=== PATIENT | female | born 1965 | race Caucasian/White ===

== ENCOUNTER 2020-02-04 04:07 | Emergency (ER) | payer MEDICARE, MEDICAID ==
[2020-02-04] MEDS ORDERED: Amiodarone 150 MG/3 ML VIAL ONE (04:10)
[2020-02-04] MEDS ORDERED: Magnesium 5 GM/10 ML VIAL ONE (04:21)
[2020-02-04] MEDS ORDERED: Lorazepam 2 MG/ML VIAL ONE ×2 (04:27→05:04)
[2020-02-04 04:30] LABS: Hemoglobin 9.7 g/dL (12.0-16.0); Mean Corpuscular HGB CONC 27.6 g/dL (32.0-36.0); Mean Corpuscular Hemoglobin 27.8 pg (27.0-31.0); RBC Distribution Width 18.9 % (11.5-14.5); Red Blood Cell (RBC) Count 3.51 mill/uL (4.20-5.40); White Blood Cell (WBC) Count 18.8 thou/uL (4.8-10.8)
[2020-02-04 04:31] LABS: Manual Diff?? YES; Mean Platelet Volume 8.6 fL (7.4-10.4); Platelet Count 296 thou/uL (130-400)
[2020-02-04 04:37] LABS: Eosinophils 1 % (0-10); Lymphocytes 41 % (21-51); MDiff Complete? YES; Monocytes 6 % (0-10); Neutrophil 52 % (42-75)
[2020-02-04 04:38] LABS: Glucose 207 mg/dL (70-105); INR-International Normal Ratio 1.5; PTT 35.4 sec (22.9-36.1)
[2020-02-04 04:44] LABS: Carbon Dioxide 13 mmol/L (22-29); Chloride 97 mmol/L (98-107); Potassium 5.4 mmol/L (3.5-5.1); Sodium 134 mmol/L (136-145)
[2020-02-04 04:45] LABS: BUN (Urea Nitrogen) 42 mg/dL (9.8-20.1); Bilirubin, Total 0.6 mg/dL (0.2-1.2); Calc. Creatinine Clearance 0 mL/min (70-130); Calcium 8.3 mg/dL (7.8-10.44); Estimated GFR-MDRD 5; Globulin 3.7 g/dL (2.4-3.5); Protein, Total 7.7 g/dL (6.0-8.3)
[2020-02-04 04:46] LABS: ALT (SGPT) 22 U/L (8-55); AST (SGOT) 62 U/L (5-34); Alkaline Phosphatase 636 U/L (40-110)
[2020-02-04 04:53] LABS: Anion Gap 29 mmol/L (10-20)
--- NOTE | 2020-02-04 07:48 | RAD ---
EXAM: Single view of the chest HISTORY: Respiratory failure. Endotracheal tube placement. COMPARISON: 11/23/2019 FINDINGS: Single view of the chest shows an enlarged but stable cardiomediastinal silhouette. An end otracheal tube is seen with its tip in good position about 2 cm from the fabby. An NG tube courses off the inferior aspect of the film. The pacemaker is unchanged in position. Diffuse stable increased interstitial markings are present. There is slight obscurity of the left hemidiaphragm which may represent atelectasis or a left lower lobe infiltrate. No acute osseous abnormality. IMPRESSION: 1. Appropriate position of lines and tubes 2. Cardiomegaly 3. Left lower lobe atelectasis versus infiltrate
[2020-02-04] MEDS ORDERED: Sodium Bicarb 50 MEQ/50 ML Abboject 8.4% SYRINGE ONE (09:00)
== END 2020-02-04 05:32 | disposition short-term general hospital (02) ==
LOC: NAV ERS 04:07 → EDBD 04:07 → NAV ERS 05:32
DX: T82.118A Breakdown (mechanical) of other cardiac electronic device, initial encounter (principal); N18.9 Chronic kidney disease, unspecified; Z99.2 Dependence on renal dialysis; E87.5 Hyperkalemia
CPT/HCPCS: 31500; 51702; 71045; 80053; 83735; 84484; 85025; 85610; 85730; 92960; 93005; J0282; J2060; J3475